=== PATIENT | female | born 1970 | race Two or more races ===

== ENCOUNTER 2025-01-12 20:32 | Inpatient (IN) | payer OTHER ==
[~2025-01-12] VITALS: Ht 152.4 cm; Wt 68.0 kg
--- NOTE | 2025-01-12 20:43 | NUR ---
PTE ALERTA Y ORIENTADA X3 QUIEN REFIERE VENIR YA QUE EL [address] FUE HOSPITALIZADA POR PANCREATITIS Y EN EL [place] DE [place] POR LOS MISMOS SINTOMAS DE LA ULTIMA VEZ, NAUSEAS Y DOLOR EPIGASTRICO
[2025-01-12] MEDS ORDERED: SYNTHROID75 MCG PO (20:46)
[2025-01-12] MEDS ORDERED: FAMOTIDINE/PF 20 MG in 0.9 % SODIUM CHLORIDE 8 ML IV PUSH STA (21:31)
[2025-01-12] MEDS ORDERED: KETOROLAC TROMETHAMINE 30 MG VIAL ONE (21:32)
[2025-01-12] MEDS ORDERED: FAMOTIDINE/PF 20 MG/2 ML VIAL ONE (21:32)
[2025-01-12] MEDS ORDERED: KETOROLAC TROMETHAMINE 30 MG VIAL IV ONE (21:45)
[2025-01-12] MEDS ORDERED: 0.9 % SODIUM CHLORIDE 1,000 ML IV SCH ×2 (21:45→23:45)
--- NOTE | 2025-01-12 21:45 | NUR ---
SE ORIENTA A PACIENTE SOBRE TX MEDICO, REFIERE ENTENDER. SE REALIZAN MUESTRAS DE LABORATORIO BAJO MEDIDAS ASEPTICAS. SE ADMINISTRAN MEDICAMENTOS LUIS ANTONIO ORDEN MEDICA.
[2025-01-12 22:00] LABS: BASO % 0.3 % (0.1-1.2); EOS # 0.16 (0.04-0.54); EOS % 1.3 % (0.7-7.0); HEMATOCRIT 41.7 % (34.1-44.9); HEMOGLOBIN 14.3 g/dL (11.2-15.7); LYMPH # 2.05 (1.18-3.74); LYMPH % 16.3 % (19.3-53.1); MEAN CORPUSCULAR HEMOGLOBIN 29.4 pg (25.6-32.2); MONO # 0.76 (0.24-0.82); MONO % 6.1 % (4.7-12.5); NEUT # 9.49 (1.56-6.13); NEUT % 75.7 % (34.0-71.1); PLATELET COUNT 470 K/uL (163-369); RED BLOOD COUNT 4.87 M/uL (3.93-5.22)
[2025-01-12 22:26] LABS: POTASSIUM 3.89 mEq/L (3.5-5.1)
[2025-01-12 22:32] LABS: ALBUMIN 3.9 gm/dL (3.4-5.0); BILIRUBIN TOTAL 0.87 mg/dL (0.3-1.2); CALCIUM 9.6 mg/dL (8.5-10.1); CREATININE SERUM 0.71 mg/dL (0.55-1.02); GFR 85.46; GLOBULINA 4.7 G/DL (2.4-3.5); TOTAL PROTEIN 8.6 gm/dL (6.4-8.2)
[2025-01-12 22:34] LABS: BILIRUBIN,CONJUGATED 0.35 mg/dL (0.0-0.2); BILIRUBIN,UNCONJUGATED 0.52 mg/dL (0.0-0.6)
[2025-01-12] MEDS ORDERED: ACETAMINOPHEN 500 MG GEL..CAP PO PRN (23:45)
[2025-01-12] MEDS ORDERED: MORPHINE SULFATE 4 MG/ML CARTRIDGE IV ONE (23:45)
[2025-01-13] MEDS ORDERED: PIPERACILLIN/TAZOBACTAM SODIUM 3.375 GM in DEXTROSE 5 % IN WATER 100 ML IV SCH
[2025-01-13] MEDS ORDERED: LEVOTHYROXINE SODIUM 75 MCG TABLET PO SCH (06:00)
[2025-01-13] MEDS ORDERED: FAMOTIDINE/PF 20 MG/2 ML VIAL ONE (06:30)
[2025-01-13] MEDS ORDERED: PIPERACILLIN/TAZOBACTAM SODIUM 3.375 GM VIAL IV ONE (06:30)
[2025-01-13 07:22] LABS: COVID-19 AG NEGATIVE (NEGATIVE)
[2025-01-13 07:35] LABS: INR 0.98; PARTIAL THROMBOPLASTIN TIME 26.8 SECONDS (22.0-34.0); PROTHROMBIN TIME 10.7 SECONDS (9.0-11.5)
[2025-01-13 08:31] LABS: PH,URINE 7.5 (5.0-8.0); URINE APPEARANCE Clear; URINE BILIRRUBIN Negative (NEGATIVE); URINE BLOOD Negative; URINE COLOR Yellow; URINE GLUCOSE Negative (NEGATIVE); URINE KETONE Negative (NEGATIVE); URINE LEUKOCYTE Trace; URINE NITRATE Negative; URINE PROTEIN Negative (NEGATIVE)
[2025-01-13 08:36] LABS: URINE BACTERIA 37.9 uL (0.0-1933); URINE EPITHELIAL CELLS 7.7 uL (0.0-38.8); URINE RBC 15.9 uL (0.0-20.8); URINE WBC 10.9 uL (0.0-23.2)
[2025-01-13 08:53] VITALS: BP 117/73; O2SAT 100
[2025-01-13] MEDS ORDERED: FAMOTIDINE/PF 20 MG in 0.9 % SODIUM CHLORIDE 8 ML IV PUSH SCH (09:00)
[2025-01-13 17:18] VITALS: BP 142/79
[2025-01-13 17:43] VITALS: BP 142/77
[2025-01-14 00:15] VITALS: BP 108/67; O2SAT 97
[2025-01-14 08:12] VITALS: BP 129/74; O2SAT 94
[2025-01-14] MEDS ORDERED: ONDANSETRON HCL 4 MG in 0.9 % SODIUM CHLORIDE 50 ML IV PRN (09:15)
[2025-01-14] MEDS ORDERED: MORPHINE SULFATE 2 MG/ML CARTRIDGE IV PRN (09:15)
[2025-01-14 14:27] LABS: ALBUMIN 3.6 gm/dL (3.4-5.0); BILIRUBIN TOTAL 0.74 mg/dL (0.3-1.2); CREATININE SERUM 0.58 mg/dL (0.55-1.02); GFR 107.93; POTASSIUM 4.04 mEq/L (3.5-5.1); TOTAL PROTEIN 7.6 gm/dL (6.4-8.2)
[2025-01-14] MEDS ORDERED: DICLOFENAC SODIUM 100 MG SUPP.RECT TOP ONE (15:30)
[2025-01-14 21:42] VITALS: BP 122/60
[2025-01-15 01:34] VITALS: BP 112/60
[2025-01-15 08:54] VITALS: BP 134/67; O2SAT 93
[2025-01-15 09:52] LABS: BASO % 0.3 % (0.1-1.2); EOS # 0.21 (0.04-0.54); EOS % 2.8 % (0.7-7.0); HEMATOCRIT 36.7 % (34.1-44.9); HEMOGLOBIN 12.4 g/dL (11.2-15.7); LYMPH # 1.24 (1.18-3.74); LYMPH % 16.8 % (19.3-53.1); MEAN CORPUSCULAR HEMOGLOBIN 29.2 pg (25.6-32.2); MONO # 0.43 (0.24-0.82); MONO % 5.8 % (4.7-12.5); NEUT # 5.47 (1.56-6.13); PLATELET COUNT 362 K/uL (163-369); RED BLOOD COUNT 4.24 M/uL (3.93-5.22)
[2025-01-15 11:22] LABS: ALBUMIN 3.4 gm/dL (3.4-5.0); BILIRUBIN TOTAL 0.58 mg/dL (0.3-1.2); CALCIUM 8.9 mg/dL (8.5-10.1); CREATININE SERUM 0.46 mg/dL (0.55-1.02); GFR 141.03; GLOBULINA 3.8 G/DL (2.4-3.5); POTASSIUM 4.17 mEq/L (3.5-5.1); TOTAL PROTEIN 7.2 gm/dL (6.4-8.2)
== END 2025-01-15 16:33 | disposition home or self-care (01) | DRG 444 ==
LOC: ER 20:32 → SEC-K 23:52 → MEDJ 23:52 → SEC-K 01-13 03:07 → MEDJ 01-13 11:43
PROVIDERS: General Practice; Internal Medicine; ADMIT Student in an Organized Health Care Education/Training Program; ATTEND Student in an Organized Health Care Education/Training Program
PROC: BF37ZZZ Magnetic Resonance Imaging (MRI) of Pancreas (ICD-10-PCS; 2025-01-12)
PROC: XFJB8A7 Inspection of Hepatobiliary Duct using Single-use Duodenoscope, New Technology Group 7 (ICD-10-PCS; 2025-01-14)
PROC: 0FC98ZZ Extirpation of Matter from Common Bile Duct, Via Natural or Artificial Opening Endoscopic (ICD-10-PCS; principal; 2025-01-14 15:00)
DX: K80.50 Calculus of bile duct without cholangitis or cholecystitis without obstruction (principal); K85.90 Acute pancreatitis without necrosis or infection, unspecified; E03.9 Hypothyroidism, unspecified; I10 Essential (primary) hypertension